=== PATIENT | female | born 1990 | race Caucasian/White ===

== ENCOUNTER 2018-05-14 17:50 | Emergency (ER) | payer BC ==
[~2018-05-14] VITALS: Ht 162.6 cm; Wt 62.6 kg
[~2018-05-14 17:50] MED LIST: ACETAMINOPHEN325 M1 PO; APIDRA; HUMALOG100 UNIT/1 SQ; HUMALOG100 UNIT/1 SUBQ; LANTUS SC; LANTUS100 UNIT/M SUBQ; NORCO 5-325 TA1 EACH PO; PRENATAL COMPL1 EACH PO; TRINATE TABLET1 TAB PO; VENTOLIN HFA 1818 GM INH; VITAFOL-OB+DHA1 EACH PO; ZOFRAN ODT4 MG PO; ZPAK PO
[2018-05-14 19:16] LABS: HEMATOCRIT 38.1 % (37.0-47.0); HEMOGLOBIN 13.1 gm/dL (12.0-15.0); MCH 33.2 pg (26.0-34.0); MCHC 34.5 g/dL (28.0-37.0); MCV 96.3 fL (80.0-100.0); PLATELET COUNT 340 thou/uL (150-400); RBC 3.95 mil/uL (4.20-5.00); RDW 13.1 % (10.5-14.5); WBC 13.4 thou/uL (4.0-11.0)
[2018-05-14 19:26] LABS: CALCIUM 9.2 mg/dL (8.5-10.1); CREATININE 0.7 mg/dL (0.6-1.0); POTASSIUM 4.1 mmol/L (3.5-5.1)
[2018-05-14 19:31] LABS: DIRECT BILIRUBIN 0.2 mg/dL (<0.1-0.3); TOTAL BILIRUBIN 0.9 mg/dL (<0.1-1.0); TOTAL PROTEIN 7.9 g/dL (6.4-8.2)
[2018-05-14 20:03] LABS: ABSOLUTE NEUTROPHILS 12.5 thou/uL (1.4-8.2)
[2018-05-14 20:04] LABS: ANISOCYTOSIS 1+
[2018-05-14 22:01] LABS: URINE BILIRUBIN NEGATIVE (Negative); URINE BLOOD NEGATIVE (Negative); URINE CLARITY SL CLOUDY; URINE COLOR YELLOW; URINE GLUCOSE-RANDOM* 2+ (Negative); URINE KETONES 3+ (Negative); URINE LEUKOCYTES-REFLEX NEGATIVE (Negative); URINE NITRITE-REFLEX NEGATIVE (Negative); URINE PROTEIN (DIPSTICK) NEGATIVE (Negative); URINE SPECIFIC GRAVITY 1.025 (1.005-1.035); URINE UROBILINOGEN 0.2 E.U./dl (0.2-1.0)
[2018-05-14] MEDS ORDERED: ZOFRAN ODT4 MG PO (22:48)
[2018-05-14 23:00] VITALS: BP 95/48
== END 2018-05-14 23:00 | disposition home or self-care (01) ==
LOC: ER 17:50
PROVIDERS: Emergency Medicine
DX: R82.4 Acetonuria (principal); R11.2 Nausea with vomiting, unspecified; M79.10 Myalgia, unspecified site; F17.210 Nicotine dependence, cigarettes, uncomplicated; E10.9 Type 1 diabetes mellitus without complications

== ENCOUNTER 2019-12-02 11:04 | Emergency (ER) | payer BC ==
[~2019-12-02] VITALS: Ht 162.6 cm; Wt 61.2 kg
[2019-12-02 13:14] LABS: ABSOLUTE NEUTROPHILS 5.5 thou/uL (1.4-8.2); BASOPHILS 0.3 % (0.0-2.0); EOSINOPHILS 1.3 % (0.0-3.0); HEMATOCRIT 39.2 % (37.0-47.0); HEMOGLOBIN 13.2 gm/dL (12.0-15.0); LYMPHOCYTES 20.1 % (24.0-44.0); MCH 33.2 pg (26.0-34.0); MCHC 33.8 g/dL (28.0-37.0); MCV 98.4 fL (80.0-100.0); MONOCYTES 4.7 % (1.0-8.0); PLATELET COUNT 342 thou/uL (150-400); POLYS 73.6 % (36.0-66.0); RBC 3.98 mil/uL (4.20-5.00); RDW 12.5 % (10.5-14.5); WBC 7.5 thou/uL (4.0-11.0)
[2019-12-02 13:24] LABS: ANION GAP 11 mmol/L (7-16); BUN 13 mg/dL (7-18); CALCIUM 8.8 mg/dL (8.5-10.1); CHLORIDE 104 mmol/L (98-107); CO2 25 mmol/L (21-32); CREATININE 0.6 mg/dL (0.6-1.0); GLUCOSE 228 mg/dL (74-106); POTASSIUM 4.2 mmol/L (3.5-5.1); SODIUM 140 mmol/L (136-145)
[2019-12-02 13:34] LABS: ALBUMIN 3.8 g/dL (3.4-5.0); LIPASE 111 U/L (73-393); SGOT 29 U/L (15-37); SGPT 50 U/L (30-65); TOTAL BILIRUBIN 0.6 mg/dL (0.2-1.0); TOTAL PROTEIN 7.2 g/dL (6.4-8.2); TROPONIN-I <0.06 ng/mL (<0.06)
--- NOTE | 2019-12-02 13:46 | EKG ---
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
[2019-12-02 15:10] LABS: URINE BILIRUBIN NEGATIVE (Negative); URINE BLOOD 3+ (Negative); URINE CLARITY CLEAR; URINE COLOR YELLOW; URINE GLUCOSE-RANDOM* 2+ (Negative); URINE KETONES 1+ (Negative); URINE LEUKOCYTES-REFLEX NEGATIVE (Negative); URINE NITRITE-REFLEX NEGATIVE (Negative); URINE PROTEIN (DIPSTICK) NEGATIVE (Negative); URINE UROBILINOGEN 0.2 E.U./dl (0.2-1.0)
[2019-12-02 15:33] LABS: SQUAMOUS 4-10 Moderate /LPF (0-3)
[2019-12-02 15:34] LABS: CASTS None Seen /LPF (None Seen); CRYSTALS None Seen /LPF (None Seen); URINE RBC 3-10 Few /HPF (0-2); URINE WBC-REFLEX 0-5 Rare /HPF (0-5)
[2019-12-02] MEDS ORDERED: ONDANSETRON HCL4 M2 PO (16:01)
[2019-12-02 16:42] VITALS: BP 124/69
== END 2019-12-02 16:43 | disposition home or self-care (01) ==
LOC: ER 11:04
PROVIDERS: Emergency Medicine
DX: K52.9 Noninfective gastroenteritis and colitis, unspecified (principal); R11.2 Nausea with vomiting, unspecified; E10.8 Type 1 diabetes mellitus with unspecified complications; F17.210 Nicotine dependence, cigarettes, uncomplicated; Z79.899 Other long term (current) drug therapy; Z79.4 Long term (current) use of insulin